=== PATIENT | female | born 1940 | race Caucasian/White ===

== ENCOUNTER → 2017-12-24 | Outpatient (CLI) | payer MEDICARE, OTHER ==
[~2017-12-24] MED LIST: ALBU90OI6 INH; ANORO ELLIPTA1 EACH INH; ASPI81CH PO; COQ1050 MG PO; Cranberry300 MG PO; ESTER-C 1,0001 EACH PO; FERR325 PO; FLUT44OIA INH; Flonase 0.05% N16 GM; KRILL OIL500 MG PO; LEVSOD100 PO; LIVALO4 MG PO; LOSHYD PO; MULVIT PO; NIAC500 PO; PARO10 PO; RANI150 PO; UBID100 PO; ZOLP5 PO
[2017-12-24 14:55] LABS: Appearance, Urine Clear (Clear); Bilirubin, Urine Neg (Neg); Blood, Urine Neg (Neg); Color, Urine Yellow (P-Yellow); Glucose Qualitative, Urine Neg (Neg); Ketones, Urine Neg (Neg); Leukocyte Esterase, Urine Neg (Neg); Nitrite, Urine Neg (Neg); Protein, Urine Neg (Neg); Specific Gravity, Urine 1.015 (1.003-1.022); Urobilinogen, Urine NORM (Normal)
== END ==
LOC: LAB SHORT 13:00 → OLS 13:00 → LAB FUT 12-24 12:50 → EDSTATUS 12-24 12:50
DX: N39.46 Mixed incontinence (principal)
CPT/HCPCS: 81003

== ENCOUNTER 2021-01-07 08:02 | Day surgery (SDC) | payer MEDICARE, OTHER ==
[~2021-01-07] VITALS: Ht 160 cm; Wt 79.1 kg
[~2021-01-07 08:02] MED LIST changes: +HYDCHL25 PO; +LOSA50 PO; +LUTEIN20 MG PO; +MYRBETRIQ25 MG PO; +PANT40 PO; +TOCO1000 PO; +TRAM50 PO
--- NOTE | 2021-01-07 19:28 | NUR ---
SUMMARY: PT IS POD0 R TKA. VSS, A/O, DOING WELL POST OP. SURGICAL SITE WNL, R LEG ICED AND ELEVATED WHILE AT REST. PAIN SEEMS TO BE MANAGED WITH 10MG OXYCODONE AND 0.5 DILAUDID FOR BREAKTHROUGH. PT UNABLE TO VOID SINCE POST OP, PT REPORTS FEELING THE URGE CURRENTLY AND NOC FOUNDER AND CHIEF EXECUTIVE OFFICER HELPING TO RESTROOM AT THIS TIME. NOC RN AWARE OF THIS. PT KRISTI PO, DENIES N/V. PLAN IS DC TOMORROW. REPORT PASSED TO NOC RN, LAZARO
[2021-01-08 04:12] LABS: BASOPHILS ABSOLUTE AUTO 0.01 K/mm3 (0.00-0.23); BASOPHILS PERCENT AUTO 0 % (0-2); EOSINOPHILS PERCENT AUTO 0 % (0-6); Hematocrit 27.5 % (33.0-51.0); Hemoglobin 8.5 g/dL (11.5-16.0); IMMATURE GRAN ABSOLUTE AUTO 0.05 K/mm3 (0.00-0.10); IMMATURE GRAN PERCENT AUTO 1 % (0-1); LYMPHOCYTES ABSOLUTE AUTO 0.71 K/mm3 (0.84-5.20); LYMPHOCYTES PERCENT AUTO 8 % (21-46); MONOCYTES ABSOLUTE AUTO 0.43 K/mm3 (0.16-1.47); MONOCYTES PERCENT AUTO 5 % (4-13); Mean Corpuscular HGB 27.2 pg (26.0-34.0); Mean Corpuscular HGB Conc 30.9 g/dL (31.5-36.5); Mean Corpuscular Volume 88 fL (80-100); Mean Platelet Volume 9.8 fL (9.1-12.4); NEUTROPHILS ABSOLUTE AUTO 7.98 K/mm3 (1.96-9.15); NEUTROPHILS PERCENT AUTO 87 % (41-73); Platelet Count 343 K/mm3 (150-400); RDW Coefficient Variation 15.4 % (11.7-14.2); RDW Standard Deviation 49.6 fL (35.1-46.3); Red Blood Cell Count 3.12 M/mm3 (3.80-5.20); White Blood Cell Count 9.18 K/mm3 (4.00-11.30)
[2021-01-08 04:31] LABS: Bun/Creatinine Ratio 15.6 (12.0-20.0); Calcium, Blood 7.9 mg/dL (8.5-10.1); Creatinine, Blood 1.09 mg/dL (0.40-1.00); Potassium, Blood 4.4 mmol/L (3.5-5.5)
--- NOTE | 2021-01-08 06:27 | NUR ---
SHIFT SUMMARY: PT POD#1 FOR RT TKA. ACEWRAP+AQUACEL DRESSING C/D/I WITH POLAR PACK IN PLACE. PAIN WELL MANAGED WITH 10MG OXY AND SCHEDULED TORADOL AND TYLENOL. PT AMBULATING TO BATHROOM WITH 1 MINIMAL ASSIST AND FWW+GB. PT NEEDING FREQ VERBAL QUES/INSTRUCTIONS ON SAFE AMBULATION. PT SOB WITH ACTIVITY AND REPORTS THIS IS BASELINE FOR HER. PT RECIEVING BREATHING TREATMENTS PER EMAR. PT CURRENTLY SITTING UP IN CHAIR WITH EXTREMITY ELEVATED. PT HAS BEEN VERY PLEASANT AND COOPERATIVE THROUGHOUT SHIFT. PLAN FOR PHYSICAL THERAPY TODAY.
[2021-01-08] MEDS ORDERED: Percocet 5-3251 EACH PO (08:51)
[2021-01-08] MEDS ORDERED: ASPI81CH PO (08:52)
--- NOTE | 2021-01-08 16:20 | NUR ---
DISCHARGE SUMMARY PT A&OX4, VSS, LEFT VIA WC WITH MINE TECHNICIAN, TO GO HOME WITH , WITH ALL PERSONAL PROPERTY INCLUDING DC PACKET, 2 AQUACEL DRESSINGS AND 1 NARC SCRIPT. DC INSTRUCTIONS PROVIDED TO PT AND , PT AND REP UNDERSTANDING THOSE INSTRUCTIONS. IV DC'D.
== END 2021-01-08 14:48 | disposition home or self-care (01) ==
LOC: ORSCMMR 08:02 → ORD 08:15 → ORSCMMR 09:45 → SURS 15:34 → ORSCMMR 01-08 14:48 → SURS 01-08 14:48
PROVIDERS: Orthopaedic Surgery
PROC: 0SRC0JA Replacement of Right Knee Joint with Synthetic Substitute, Uncemented, Open Approach (ICD-10-PCS; principal; 2021-01-07 11:00)
PROC: 8E0Y0CZ Robotic Assisted Procedure of Lower Extremity, Open Approach (ICD-10-PCS; principal; 2021-01-07 11:00)
DX: M17.11 Unilateral primary osteoarthritis, right knee (principal); I10 Essential (primary) hypertension; Z79.82 Long term (current) use of aspirin; Z79.899 Other long term (current) drug therapy; Z87.891 Personal history of nicotine dependence; E03.9 Hypothyroidism, unspecified
CPT/HCPCS: 27447; S2900; 36415; 73560-RT; 80048; 85025; 94640; 94760; 97110; 97116; 97162; A9270; C1776; C9113; J0171; J0690; J0735; J1100; J1170; J1885; J2250; J2370; J2405; J2704; J2795; J3010; J7120

== ENCOUNTER 2021-03-06 11:03 | Emergency (ER) | payer MEDICARE, OTHER ==
[~2021-03-06] VITALS: Ht 160 cm; Wt 72.6 kg
[~2021-03-06 11:03] MED LIST changes: +Percocet 5-3251 EACH PO
[2021-03-06 11:44] LABS: BASOPHILS ABSOLUTE AUTO 0.07 K/mm3 (0.00-0.23); BASOPHILS PERCENT AUTO 1 % (0-2); EOSINOPHILS ABSOLUTE AUTO 0.14 K/mm3 (0.00-0.68); EOSINOPHILS PERCENT AUTO 3 % (0-6); Hematocrit 32.6 % (33.0-51.0); Hemoglobin 9.7 g/dL (11.5-16.0); IMMATURE GRAN PERCENT AUTO 0 % (0-1); LYMPHOCYTES ABSOLUTE AUTO 1.53 K/mm3 (0.84-5.20); LYMPHOCYTES PERCENT AUTO 29 % (21-46); MONOCYTES ABSOLUTE AUTO 0.55 K/mm3 (0.16-1.47); MONOCYTES PERCENT AUTO 10 % (4-13); Mean Corpuscular HGB 25.1 pg (26.0-34.0); Mean Corpuscular HGB Conc 29.8 g/dL (31.5-36.5); Mean Corpuscular Volume 84 fL (80-100); Mean Platelet Volume 9.6 fL (9.1-12.4); NEUTROPHILS ABSOLUTE AUTO 3.05 K/mm3 (1.96-9.15); NEUTROPHILS PERCENT AUTO 57 % (41-73); Platelet Count 394 K/mm3 (150-400); RDW Standard Deviation 47.7 fL (35.1-46.3); Red Blood Cell Count 3.87 M/mm3 (3.80-5.20); White Blood Cell Count 5.34 K/mm3 (4.00-11.30)
[2021-03-06 12:19] LABS: Albumin, Blood 3.5 g/dL (3.4-5.0); Bilirubin, Total 0.3 mg/dL (0.1-1.0); Bun/Creatinine Ratio 21.8 (12.0-20.0); Calcium, Blood 8.7 mg/dL (8.5-10.1); Creatinine, Blood 0.92 mg/dL (0.40-1.00); Globulin, Blood 3.5 g/dL (2.2-4.0)
== END 2021-03-06 14:38 | disposition home or self-care (01) ==
LOC: ER 11:03
PROVIDERS: Emergency Medicine
DX: K92.2 Gastrointestinal hemorrhage, unspecified (principal); D64.9 Anemia, unspecified; E03.9 Hypothyroidism, unspecified; E78.5 Hyperlipidemia, unspecified; K21.9 Gastro-esophageal reflux disease without esophagitis; I10 Essential (primary) hypertension; Z79.82 Long term (current) use of aspirin; Z79.890 Hormone replacement therapy; Z79.899 Other long term (current) drug therapy
CPT/HCPCS: 36415; 80053; 85025; 86850; 86900; 86901; 93005; 93010; 99285-25

== ENCOUNTER → 2021-10-29 | Outpatient (CLI) | payer MEDICARE, OTHER ==
[2021-10-29 15:12] LABS: BASOPHILS ABSOLUTE AUTO 0.07 K/mm3 (0.00-0.23); BASOPHILS PERCENT AUTO 1 % (0-2); EOSINOPHILS ABSOLUTE AUTO 0.27 K/mm3 (0.00-0.68); EOSINOPHILS PERCENT AUTO 4 % (0-6); Hematocrit 34.1 % (33.0-51.0); Hemoglobin 10.3 g/dL (11.5-16.0); IMMATURE GRAN ABSOLUTE AUTO 0.02 K/mm3 (0.00-0.10); IMMATURE GRAN PERCENT AUTO 0 % (0-1); LYMPHOCYTES ABSOLUTE AUTO 1.61 K/mm3 (0.84-5.20); LYMPHOCYTES PERCENT AUTO 25 % (21-46); MONOCYTES ABSOLUTE AUTO 0.49 K/mm3 (0.16-1.47); MONOCYTES PERCENT AUTO 8 % (4-13); Mean Corpuscular HGB 26.6 pg (26.0-34.0); Mean Corpuscular HGB Conc 30.2 g/dL (31.5-36.5); Mean Corpuscular Volume 88 fL (80-100); Mean Platelet Volume 9.7 fL (9.1-12.4); NEUTROPHILS ABSOLUTE AUTO 3.94 K/mm3 (1.96-9.15); NEUTROPHILS PERCENT AUTO 62 % (41-73); Platelet Count 416 K/mm3 (150-400); RDW Coefficient Variation 16.3 % (11.7-14.2); RDW Standard Deviation 52.1 fL (35.1-46.3); Red Blood Cell Count 3.87 M/mm3 (3.80-5.20)
[2021-10-29 15:46] LABS: Albumin, Blood 3.7 g/dL (3.4-5.0); Bilirubin, Total 0.3 mg/dL (0.1-1.0); Creatinine, Blood 0.94 mg/dL (0.40-1.00); Globulin, Blood 3.8 g/dL (2.2-4.0); Potassium, Blood 4.1 mmol/L (3.5-5.5); Thyroid Stimulating Hormone 7.21 uIU/mL (0.360-4.800); Total Protein, Blood 7.5 g/dL (6.4-8.2)
[2021-10-29 18:28] LABS: Free Thyroxine 1.03 ng/dL (0.70-1.60)
== END ==
LOC: LAB SHORT 15:08
PROVIDERS: Physician Assistant Medical
DX: E03.9 Hypothyroidism, unspecified (principal); R53.83 Other fatigue
CPT/HCPCS: 80053; 84439; 84443; 84481; 85025

== ENCOUNTER → 2021-11-05 | Outpatient (CLI) | payer MEDICARE, OTHER ==
[2021-11-05 13:13] LABS: Source, Urine Clean Catch
[2021-11-05 15:46] LABS: Appearance, Urine Hazy (Clear); Bilirubin, Urine Neg (Neg); Blood, Urine 1+ (Neg); Glucose Qualitative, Urine Neg (Neg); Ketones, Urine Neg (Neg); Leukocyte Esterase, Urine 3+ (Neg); Nitrite, Urine Pos (Neg); Protein, Urine Neg (Neg); Urobilinogen, Urine NORM (Normal)
[2021-11-05 17:18] LABS: Color, Urine Pale Yellow (P-Yellow)
[2021-11-05 17:19] LABS: Bacteria Many /hpf; Squamous Epithelial Cells Few /hpf (Few); White Blood Cells, Urine 25-50 /hpf (0-5)
== END | disposition home or self-care (01) ==
LOC: LAB SHORT 12:00
PROVIDERS: Family Medicine
DX: R41.3 Other amnesia (principal); R30.0 Dysuria
CPT/HCPCS: 81001; 87077; 87086; 87186

== ENCOUNTER 2024-01-10 15:37 | Emergency (ER) | payer MEDICARE, OTHER ==
[~2024-01-10] VITALS: Ht 165.1 cm; Wt 63.5 kg
[2024-01-10] MEDS ORDERED: PROAIR RESPICL90 MCG (16:15)
[2024-01-10 16:38] LABS: BASOPHILS ABSOLUTE AUTO 0.04 K/mm3 (0.00-0.23); BASOPHILS PERCENT AUTO 1 % (0-2); EOSINOPHILS ABSOLUTE AUTO 0.05 K/mm3 (0.00-0.68); EOSINOPHILS PERCENT AUTO 1 % (0-6); Hematocrit 36.2 % (33.0-51.0); Hemoglobin 11.9 g/dL (11.5-16.0); IMMATURE GRAN PERCENT AUTO 2 % (0-1); LYMPHOCYTES ABSOLUTE AUTO 0.59 K/mm3 (0.84-5.20); LYMPHOCYTES PERCENT AUTO 10 % (21-46); MONOCYTES ABSOLUTE AUTO 0.67 K/mm3 (0.16-1.47); MONOCYTES PERCENT AUTO 11 % (4-13); Mean Corpuscular HGB Conc 32.9 g/dL (31.5-36.5); Mean Corpuscular Volume 91 fL (80-100); Mean Platelet Volume 9.4 fL (9.1-12.4); NEUTROPHILS ABSOLUTE AUTO 4.49 K/mm3 (1.96-9.15); NEUTROPHILS PERCENT AUTO 76 % (41-73); Platelet Count 401 K/mm3 (150-400); RDW Coefficient Variation 13.3 % (11.7-14.2); RDW Standard Deviation 45.1 fL (35.1-46.3); Red Blood Cell Count 3.97 M/mm3 (3.80-5.20); White Blood Cell Count 5.94 K/mm3 (4.00-11.30)
[2024-01-10 17:19] LABS: Albumin, Blood 3.4 g/dL (3.4-5.0); Albumin/Globulin Ratio 0.8 (0.8-1.8); Bilirubin, Total 0.3 mg/dL (0.1-1.0); Bun/Creatinine Ratio 8.3 (12.0-20.0); Creatinine, Blood 0.96 mg/dL (0.40-1.00); Globulin, Blood 4.2 g/dL (2.2-4.0); Potassium, Blood 3.6 mmol/L (3.5-5.5); Total Protein, Blood 7.6 g/dL (6.4-8.2)
[2024-01-10] MEDS ORDERED: RX PP Nirmatrelvir/Ritonavir (Paxlovid) 1 CO-PACKAGE (30 Tabs) UD ONE (18:15)
[2024-01-10] MEDS ORDERED: NS 1,000 ML IV SCH (18:15)
[2024-01-10 19:30] VITALS: BP 167/87
== END 2024-01-10 19:30 | disposition home or self-care (01) ==
LOC: ER 15:37
PROVIDERS: Emergency Medicine
DX: U07.1 COVID-19 (principal); E78.5 Hyperlipidemia, unspecified; I10 Essential (primary) hypertension; K21.9 Gastro-esophageal reflux disease without esophagitis; E03.9 Hypothyroidism, unspecified; Z79.899 Other long term (current) drug therapy; Z79.890 Hormone replacement therapy
CPT/HCPCS: 71045; 80053; 85025; 93005; 93010; 96360; 99284-25; J7030

== ENCOUNTER 2024-08-01 10:36 | Emergency (ER) | payer MEDICARE, OTHER ==
[~2024-08-01] VITALS: Ht 170.2 cm; Wt 72.6 kg
[~2024-08-01 10:36] MED LIST changes: +PROAIR RESPICL90 MCG
[2024-08-01 11:24] VITALS: BP 149/81
[2024-08-01] MEDS ORDERED: Ketorolac Tromethamine 30mg Vial IM ONE (11:25)
[2024-08-01] MEDS ORDERED: Lidocaine 4% 1 Patch TOP ONE (11:25)
[2024-08-01] MEDS ORDERED: Norco 5-325 Ta1 EACH PO (13:22)
== END 2024-08-01 13:36 | disposition home or self-care (01) ==
LOC: ER 10:36
DX: S22.42XA Multiple fractures of ribs, left side, initial encounter for closed fracture (principal); E78.5 Hyperlipidemia, unspecified; I10 Essential (primary) hypertension; K21.9 Gastro-esophageal reflux disease without esophagitis; E03.9 Hypothyroidism, unspecified; W18.30XA Fall on same level, unspecified, initial encounter; Z79.51 Long term (current) use of inhaled steroids; Z79.899 Other long term (current) drug therapy
CPT/HCPCS: 71046; 96372; 99283-25; A9270; J1885

== ENCOUNTER 2024-11-16 00:56 | Emergency (ER) | payer MEDICARE, OTHER ==
[~2024-11-16] VITALS: Ht 162.6 cm; Wt 83.9 kg
[~2024-11-16 00:56] MED LIST changes: +Norco 5-325 Ta1 EACH PO
[2024-11-16 03:58] LABS: BASOPHILS ABSOLUTE AUTO 0.06 K/mm3 (0.00-0.23); BASOPHILS PERCENT AUTO 1 % (0-2); EOSINOPHILS ABSOLUTE AUTO 0.17 K/mm3 (0.00-0.68); EOSINOPHILS PERCENT AUTO 3 % (0-6); Hematocrit 28.1 % (33.0-51.0); Hemoglobin 8.5 g/dL (11.5-16.0); IMMATURE GRAN ABSOLUTE AUTO 0.02 K/mm3 (0.00-0.10); IMMATURE GRAN PERCENT AUTO 0 % (0-1); LYMPHOCYTES ABSOLUTE AUTO 1.19 K/mm3 (0.84-5.20); LYMPHOCYTES PERCENT AUTO 19 % (21-46); MONOCYTES PERCENT AUTO 8 % (4-13); Mean Corpuscular HGB 24.8 pg (26.0-34.0); Mean Corpuscular HGB Conc 30.2 g/dL (31.5-36.5); Mean Corpuscular Volume 82 fL (80-100); Mean Platelet Volume 9.6 fL (9.1-12.4); NEUTROPHILS ABSOLUTE AUTO 4.42 K/mm3 (1.96-9.15); NEUTROPHILS PERCENT AUTO 70 % (41-73); Platelet Count 345 K/mm3 (150-400); RDW Coefficient Variation 16.5 % (11.7-14.2); RDW Standard Deviation 49.3 fL (35.1-46.3); Red Blood Cell Count 3.43 M/mm3 (3.80-5.20); White Blood Cell Count 6.36 K/mm3 (4.00-11.30)
[2024-11-16 04:06] LABS: Albumin, Blood 3.7 g/dL (3.4-5.0); Albumin/Globulin Ratio 0.9 (0.8-1.8); Bilirubin, Total 0.2 mg/dL (0.1-1.0); Calcium, Blood 9.4 mg/dL (8.5-10.1); Creatinine, Blood 1.58 mg/dL (0.40-1.00); Magnesium, Blood 2.2 mg/dL (1.6-2.4); Phosphorus, Blood 4.5 mg/dL (2.5-4.9); Potassium, Blood 4.4 mmol/L (3.5-5.5); Total Protein, Blood 7.7 g/dL (6.4-8.2)
[2024-11-16] MEDS ORDERED: NS 1,000 ML IV SCH (05:30)
[2024-11-16 05:55] LABS: Hematocrit 28.7 % (33.0-51.0); Hemoglobin 8.5 g/dL (11.5-16.0)
[2024-11-16 06:00] VITALS: BP 113/55
== END 2024-11-16 06:55 | disposition home or self-care (01) ==
LOC: ER 00:56
PROVIDERS: Emergency Medicine
DX: R29.6 Repeated falls (principal); D64.9 Anemia, unspecified; K21.9 Gastro-esophageal reflux disease without esophagitis; I10 Essential (primary) hypertension; E03.9 Hypothyroidism, unspecified; E78.5 Hyperlipidemia, unspecified; Z79.899 Other long term (current) drug therapy; Z79.51 Long term (current) use of inhaled steroids
CPT/HCPCS: 70450; 72125; 80053; 83735; 84100; 85014; 85018; 85025; 93005; 93010; 99284-25; J7030

== ENCOUNTER 2025-02-15 13:00 | Emergency (ER) | payer MEDICARE, OTHER ==
[~2025-02-15] VITALS: Ht 165.1 cm; Wt 68.0 kg
[2025-02-15 13:38] LABS: BASOPHILS ABSOLUTE AUTO 0.08 K/mm3 (0.00-0.23); BASOPHILS PERCENT AUTO 1 % (0-2); EOSINOPHILS ABSOLUTE AUTO 0.09 K/mm3 (0.00-0.68); EOSINOPHILS PERCENT AUTO 1 % (0-6); Hematocrit 30.0 % (33.0-51.0); Hemoglobin 8.5 g/dL (11.5-16.0); IMMATURE GRAN ABSOLUTE AUTO 0.05 K/mm3 (0.00-0.10); IMMATURE GRAN PERCENT AUTO 1 % (0-1); LYMPHOCYTES ABSOLUTE AUTO 0.98 K/mm3 (0.84-5.20); LYMPHOCYTES PERCENT AUTO 13 % (21-46); MONOCYTES ABSOLUTE AUTO 0.69 K/mm3 (0.16-1.47); MONOCYTES PERCENT AUTO 9 % (4-13); Mean Corpuscular HGB Conc 28.3 g/dL (31.5-36.5); Mean Corpuscular Volume 80 fL (80-100); NEUTROPHILS ABSOLUTE AUTO 5.81 K/mm3 (1.96-9.15); NEUTROPHILS PERCENT AUTO 76 % (41-73); NRBC ABSOLUTE 0.00 K/mm3 (0.00-0.02); NRBC Auto 0.0 /100 WBC (0.0-0.2); Platelet Count 308 K/mm3 (150-400); RDW Coefficient Variation 17.6 % (11.7-14.2); RDW Standard Deviation 50.8 fL (35.1-46.3)
[2025-02-15 13:54] LABS: Alanine Aminotransfer (ALT/SGP 19.0 U/L (12-78); Albumin, Blood 3.1 g/dL (3.4-5.0); Albumin/Globulin Ratio 0.9 (0.8-1.8); Anion Gap 9.0 mmol/L (3-11); Aspartate Aminotrans (AST/SGOT 13.0 U/L (12-37); Bilirubin, Total 0.4 mg/dL (0.1-1.0); Blood Urea Nitrogen 22.0 mg/dL (8-24); CO2, Blood 25.0 mmol/L (21-32); Calcium, Blood 8.6 mg/dL (8.5-10.1); Chloride, Blood 107.0 mmol/L (98-108); Creatinine, Blood 1.28 mg/dL (0.40-1.00); Globulin, Blood 3.4 g/dL (2.2-4.0); Glucose, Blood 124.0 mg/dL (70-99); Potassium, Blood 3.7 mmol/L (3.5-5.5); Sodium, Blood 137.0 mmol/L (136-145); Total Protein, Blood 6.5 g/dL (6.4-8.2)
[2025-02-15 15:05] VITALS: BP 123/56
== END 2025-02-15 15:08 | disposition home or self-care (01) ==
LOC: ER 13:00
PROVIDERS: Emergency Medicine
DX: R55 Syncope and collapse (principal); E86.0 Dehydration; I10 Essential (primary) hypertension; K21.9 Gastro-esophageal reflux disease without esophagitis; E78.5 Hyperlipidemia, unspecified; Z87.891 Personal history of nicotine dependence; Z79.890 Hormone replacement therapy; Z79.899 Other long term (current) drug therapy
CPT/HCPCS: 80053; 84484; 85025; 93005; 93010

== ENCOUNTER 2025-02-23 16:48 | Observation (INO) | payer MEDICARE, OTHER ==
[~2025-02-23] VITALS: Ht 170.2 cm; Wt 72.1 kg
[2025-02-23 17:27] LABS: BASOPHILS ABSOLUTE AUTO 0.06 K/mm3 (0.00-0.23); BASOPHILS PERCENT AUTO 0 % (0-2); EOSINOPHILS ABSOLUTE AUTO 0.00 K/mm3 (0.00-0.68); EOSINOPHILS PERCENT AUTO 0 % (0-6); Hematocrit 33.0 % (33.0-51.0); Hemoglobin 9.6 g/dL (11.5-16.0); IMMATURE GRAN ABSOLUTE AUTO 0.28 K/mm3 (0.00-0.10); IMMATURE GRAN PERCENT AUTO 1 % (0-1); LYMPHOCYTES ABSOLUTE AUTO 1.10 K/mm3 (0.84-5.20); LYMPHOCYTES PERCENT AUTO 3 % (21-46); MONOCYTES ABSOLUTE AUTO 2.10 K/mm3 (0.16-1.47); MONOCYTES PERCENT AUTO 7 % (4-13); Mean Corpuscular HGB Conc 29.1 g/dL (31.5-36.5); Mean Corpuscular Volume 79 fL (80-100); NEUTROPHILS ABSOLUTE AUTO 28.95 K/mm3 (1.96-9.15); NEUTROPHILS PERCENT AUTO 89 % (41-73); NRBC ABSOLUTE 0.00 K/mm3 (0.00-0.02); NRBC Auto 0.0 /100 WBC (0.0-0.2); Platelet Count 421 K/mm3 (150-400); RDW Coefficient Variation 18.6 % (11.7-14.2); RDW Standard Deviation 51.9 fL (35.1-46.3)
[2025-02-23 17:54] LABS: Alanine Aminotransfer (ALT/SGP 34.0 U/L (12-78); Albumin, Blood 3.1 g/dL (3.4-5.0); Albumin/Globulin Ratio 0.8 (0.8-1.8); Anion Gap 13.0 mmol/L (3-11); Aspartate Aminotrans (AST/SGOT 106.0 U/L (12-37); Bilirubin, Total 0.5 mg/dL (0.1-1.0); Blood Urea Nitrogen 39.0 mg/dL (8-24); CO2, Blood 26.0 mmol/L (21-32); Calcium, Blood 8.5 mg/dL (8.5-10.1); Chloride, Blood 96.0 mmol/L (98-108); Creatinine, Blood 3.69 mg/dL (0.40-1.00); Globulin, Blood 4.1 g/dL (2.2-4.0); Glucose, Blood 123.0 mg/dL (70-99); Potassium, Blood 3.5 mmol/L (3.5-5.5); Sodium, Blood 131.0 mmol/L (136-145); Thyroid Stimulating Hormone 3.61 uIU/mL (0.360-4.800); Total Protein, Blood 7.2 g/dL (6.4-8.2)
[2025-02-23] MEDS ORDERED: NS 1,000 ML IV SCH ×2 (18:05→19:40)
[2025-02-23 19:09] LABS: Source, Urine Clean Catch
[2025-02-23 19:15] LABS: Bilirubin, Urine Neg (Neg); Color, Urine Yellow (P-Yellow); Glucose Qualitative, Urine Neg (Neg); Ketones, Urine Neg (Neg); Leukocyte Esterase, Urine Neg (Neg); Protein, Urine 2+ (Neg); Specific Gravity, Urine 1.020 (1.003-1.022); Urobilinogen, Urine NORM (Normal)
[2025-02-23] MEDS ORDERED: CefTRIAXone Sodium 1,000 MG in NS 100 ML IV ONE (19:40)
[2025-02-23 20:16] LABS: Influenza A, PCR NEGATIVE (NEGATIVE); Influenza B, PCR NEGATIVE (NEGATIVE); Resp Syncytial Virus, PCR NEGATIVE (NEGATIVE); SARS-Cov-2 (COVID-19) PCR, MMC NEGATIVE (NEGATIVE)
--- NOTE | 2025-02-23 21:31 | NUR ---
TOOK REPORT FROM ED RN DEENA.
[2025-02-23 22:00] VITALS: BP 128/63
[2025-02-24] VITALS (23 sets, daily range): BP systolic 44–119; BP diastolic 21–98
[2025-02-24] MEDS ORDERED: NS 250 ML IV PRN (04:30)
[2025-02-24 04:32] LABS: Influenza A/2009-H1 Not Detected (NOT DETECT); SARS-Cov-2 (COVID-19), BioFire Not Detected (NOT DETECT)
--- NOTE | 2025-02-24 05:27 | NUR ---
SHIFT SUMMARY NOC PT A/O X 2-3. HIGHLY CONFUSED AND FORGETFUL AT TIMES. VSS. PT FREQUENTLY STATES THAT "I AM SCARED BECAUSE I DO NOT KNOW WHERE I AM AND WHY I AM HERE, AND IS MY FAMILY HERE". PT REORIENTS QUICKLY WHEN GIVEN REASSURANCES THAT THEY WILL REMAIN SAFE WHILE THEY ARE IN HOSPITAL AND FAMILY WILL BE BACK TODAY. PT ASSISTED WITH PHONE TO CALL SPOUSE TO RELIEVE ANXIETY. PT LACTIC ACID WNL 1.7. PROCALCITONIN 0.64. ABD/PELVIC CT NEGATIVE FOR INFECTION SOURCE. RESPIRATORY PCR PANEL STILL PENDING. PT HAS PUREWICK IN PLACE DUE TO SEVERE WEAKNESS. PT ON 2L/NC AND SPO2 >95%, RA IS BASELINE. PT RECEIVED 1L LR AFTER ARRIVING ON UNIT. MED RECONCILATION UNABLE TO BE COMPLETED DUE TO PT CONFUSION. PT CURRENTLY RESTING WITH BED ALARM ON, BED IN LOWEST POSITION, AND CALL LIGHT WITHIN REACH.
[2025-02-24 05:54] LABS: BASOPHILS ABSOLUTE AUTO 0.04 K/mm3 (0.00-0.23); BASOPHILS PERCENT AUTO 0 % (0-2); EOSINOPHILS ABSOLUTE AUTO 0.01 K/mm3 (0.00-0.68); EOSINOPHILS PERCENT AUTO 0 % (0-6); Hematocrit 29.1 % (33.0-51.0); Hemoglobin 8.4 g/dL (11.5-16.0); IMMATURE GRAN ABSOLUTE AUTO 0.13 K/mm3 (0.00-0.10); IMMATURE GRAN PERCENT AUTO 1 % (0-1); LYMPHOCYTES ABSOLUTE AUTO 1.05 K/mm3 (0.84-5.20); LYMPHOCYTES PERCENT AUTO 5 % (21-46); MONOCYTES ABSOLUTE AUTO 1.13 K/mm3 (0.16-1.47); MONOCYTES PERCENT AUTO 5 % (4-13); Mean Corpuscular HGB Conc 28.9 g/dL (31.5-36.5); Mean Corpuscular Volume 78 fL (80-100); NEUTROPHILS ABSOLUTE AUTO 20.47 K/mm3 (1.96-9.15); NEUTROPHILS PERCENT AUTO 90 % (41-73); NRBC ABSOLUTE 0.00 K/mm3 (0.00-0.02); NRBC Auto 0.0 /100 WBC (0.0-0.2); Platelet Count 284 K/mm3 (150-400); RDW Coefficient Variation 18.4 % (11.7-14.2); RDW Standard Deviation 51.0 fL (35.1-46.3)
[2025-02-24 06:15] LABS: Alanine Aminotransfer (ALT/SGP 48.0 U/L (12-78); Albumin, Blood 2.4 g/dL (3.4-5.0); Albumin/Globulin Ratio 0.7 (0.8-1.8); Anion Gap 10.0 mmol/L (3-11); Aspartate Aminotrans (AST/SGOT 171.0 U/L (12-37); Bilirubin, Total 0.4 mg/dL (0.1-1.0); Blood Urea Nitrogen 43.0 mg/dL (8-24); CO2, Blood 25.0 mmol/L (21-32); Calcium, Blood 7.6 mg/dL (8.5-10.1); Chloride, Blood 103.0 mmol/L (98-108); Creatinine, Blood 3.1 mg/dL (0.40-1.00); Globulin, Blood 3.4 g/dL (2.2-4.0); Glucose, Blood 106.0 mg/dL (70-99); Potassium, Blood 3.4 mmol/L (3.5-5.5); Sodium, Blood 135.0 mmol/L (136-145); Total Protein, Blood 5.8 g/dL (6.4-8.2)
[2025-02-24] MEDS ORDERED: Lactobacil 2-S.Thermo-Bifido 1 1 Cap PO SCH (09:00)
[2025-02-24] MEDS ORDERED: Enoxaparin 30 MG/0.3 ML SYR SC SCH (09:00)
[2025-02-24] MEDS ORDERED: EPINEPHrine HCL 4 MG in NS 250 ML IV SCH (10:40)
[2025-02-24 11:29] LABS: Hematocrit 25.7 % (33.0-51.0); Hemoglobin 6.9 g/dL (11.5-16.0); Mean Corpuscular HGB Conc 26.8 g/dL (31.5-36.5); NRBC ABSOLUTE 0.02 K/mm3 (0.00-0.02); NRBC Auto 0.1 /100 WBC (0.0-0.2); Platelet Count 197 K/mm3 (150-400); RDW Coefficient Variation 18.4 % (11.7-14.2); RDW Standard Deviation 55.1 fL (35.1-46.3)
[2025-02-24 11:34] LABS: Mean Corpuscular Volume 83 fL (80-100)
[2025-02-24 11:41] LABS: pH Blood Arterial 6.87 (7.35-7.45)
[2025-02-24 11:43] LABS: Anion Gap 18.0 mmol/L (3-11); Blood Urea Nitrogen 40.0 mg/dL (8-24); CO2, Blood 21.0 mmol/L (21-32); Calcium, Blood 7.1 mg/dL (8.5-10.1); Chloride, Blood 103.0 mmol/L (98-108); Creatinine, Blood 2.93 mg/dL (0.40-1.00); Glucose, Blood 206.0 mg/dL (70-99); Magnesium, Blood 1.9 mg/dL (1.6-2.4); Phosphorus, Blood 5.9 mg/dL (2.5-4.9); Potassium, Blood 2.5 mmol/L (3.5-5.5); Sodium, Blood 139.0 mmol/L (136-145)
[2025-02-24 11:44] LABS: Prothrombin Time Results 13.7 Sec (9.7-11.5)
[2025-02-24 11:55] LABS: BASOPHILS ABSOLUTE MAN 0.00 K/mm3 (0.00-0.23); BASOPHILS PERCENT MAN 0 % (0-2); EOSINOPHILS ABSOLUTE MAN 0.00 K/mm3 (0.00-0.68); EOSINOPHILS PERCENT MAN 0 % (0-6); LYMPHOCYTES ABSOLUTE MAN 3.76 K/mm3 (0.84-5.20); LYMPHOCYTES PERCENT MAN 16 % (21-46); MONOCYTES ABSOLUTE MAN 0.00 K/mm3 (0.16-1.47); MONOCYTES PERCENT MAN 0 % (4-13); NEUTROPHILS ABSOLUTE MAN 19.74 K/mm3 (1.96-9.15); SEG NEUTROPHILS PERCENT MAN 84 % (41-73)
[2025-02-24] MEDS ORDERED: NS 1,000 ML IV SCH (11:55)
[2025-02-24] MEDS ORDERED: Sodium Bicarb 8.4% Inj 150 MEQ in Dextrose 5% 1,000 ML IV SCH (12:00)
[2025-02-24] MEDS ORDERED: NS 250 ML IV ONE (12:05)
[2025-02-24] MEDS ORDERED: Heparin Sodium 1000 Units/ML 10ML MDV ONE (12:05)
--- NOTE | 2025-02-24 12:27 | NUR ---
1020 RAPID RESPONSE CALLED. PATIENT DESATING, MINIMALLY RESPONSIVE TO PHYSICAL STIMULI, SOILED BED, DIAPHORETIC, PALE. IMMEDIATELY PRIOR TO THIS PATIENT WAS SITTING AT EDGE OF BED WITH TUFT MACHINE OPERATOR AFTER HAVING BM ON BEDPAN, REPORTING FEELING SHORT OF BREATH, FACE APPEARING BLUE/PURPLE, INCREASED RESPIRATIONS. LAYED PATIENT DOWN, INCREASED OXYGEN NC TO 5 LITERS FROM 2. ASKED TUFT MACHINE OPERATOR FOR VITALS AT THIS TIME, INFORMED CHARGE I NEEDED ASSISTANCE. RESPIRATORY AND CHARGE IN ROOM, CHANGED TO OXY FACE MASK WITH NO CHANGE TO OXYGENATION. APICAL PULSE ERRATIC, GUPPY BREATHING. RAPID CALLED. RAPID TEAM ARRIVED AND TOOK OVER CARE, DR JARVIS IN ROOM. PATIENT EVENTUALLY TRANSFERRED TO ICU.
--- NOTE | 2025-02-24 13:39 | NUR ---
PT ARRIVED FROM RAPID RESPONE ON THE FLOOR. PATEINT CAME INTUBATED AND MOVED TO ICU BED. PT BECAME BRADICARDIC AND WENT PEA WHEN CODE WAS STARTED. DR JAMES AT BEDSIDE. SEE CODE BLUE SHEET. A CYCLE OF RENEA, PEA, CPR, TO ROSC STARTED ON ARRIVAL TO FLOOR. DR ZUNIGA AT BEDSIDE ENTIRE TIME. REFER TO MD NOTE WELL.
[2025-02-24] MEDS ORDERED: DOPamine 400 MG/Dextrose 250 ML Bag IV ONE (14:40)
[2025-02-24] MEDS ORDERED: Sodium Bicarb 8.4% 1 MEQ/ML 50 ML Vial IV ONE (14:40)
--- NOTE | 2025-02-24 15:11 | NUR ---
[facility]/Transfer to ICU: microbiology technologist called at approx 1020hr. This RN and Lanette Soriano (RN) reported to patient's room. Upon arrival patient unresponsive, guppy breathing, pale. Primary RN also reported systolic BP in the 60's when [facility] called. This RN then requested intubation to Dr. Ferro, who agreed with plan. Dr. Arreola arrived to room at that time, multiple staff members preparing for intubation, IV fluid bolus started. Zoll pads applied, HR sinus in the 60's-70's. 1029: Spo2 100% per BMV, provided by RT. 1030: Intubated with 7.5 ETT, positive color change on capnography, bilateral breath sounds. 1030: CBG of 138 1034: HR decreased to sinus in the 40's, unable to obtain BP, 1 amp epi given per Dr. Arreola., HR then increased to 60's. 1037: Dopamine gtt started at 4mcg/kg/min. 18g IV placed to rt AC. 1038: HR to SVT 170-200's. Dopamine gtt placed on stand-by. 1039: HR decreased to 130's, patient transferred to ICU. See code blue sheet, patient went to PEA upon arrival to ICU. CPR started, Dr. Arreola at bedside throughout multiple codes.
[2025-02-24] MEDS ORDERED: CefTRIAXone Sodium 1,000 MG in NS 100 ML IV SCH (18:00)
== END 2025-02-24 16:35 ==
LOC: ER 16:48 → MEDS 16:49 → ICUE 21:36 → MEDS 21:41 → ICUE 02-24 10:37
PROVIDERS: Emergency Medicine; Internal Medicine Critical Care Medicine; ADMIT Family Medicine
DX: I21.19 ST elevation (STEMI) myocardial infarction involving other coronary artery of inferior wall (principal); R57.0 Cardiogenic shock; D62 Acute posthemorrhagic anemia; K92.1 Melena; E87.4 Mixed disorder of acid-base balance; J96.01 Acute respiratory failure with hypoxia; I48.91 Unspecified atrial fibrillation; R00.1 Bradycardia, unspecified; I12.9 Hypertensive chronic kidney disease with stage 1 through stage 4 chronic kidney disease, or unspecified chronic kidney disease; N18.32 Chronic kidney disease, stage 3b; N17.9 Acute kidney failure, unspecified; I46.9 Cardiac arrest, cause unspecified; J69.0 Pneumonitis due to inhalation of food and vomit; E87.6 Hypokalemia; G92.8 Other toxic encephalopathy; K44.9 Diaphragmatic hernia without obstruction or gangrene; K21.9 Gastro-esophageal reflux disease without esophagitis; E78.5 Hyperlipidemia, unspecified; E03.9 Hypothyroidism, unspecified; A41.9 Sepsis, unspecified organism; D72.829 Elevated white blood cell count, unspecified; Z66 Do not resuscitate; Z87.891 Personal history of nicotine dependence; Z79.890 Hormone replacement therapy; Z79.899 Other long term (current) drug therapy
CPT/HCPCS: 0202U; 36415; 36600; 51701; 70450; 71045; 71250; 74176; 80048; 80053; 81001; 82803; 82947; 83605; 83735; 84100; 84145; 84439; 84443; 85025; 85610; 85730; 86850; 86900; 86901; 86923; 87637; 93005; 93010; 93306; 94002; 96361; 96365; 96367; 96372; 96375; 99285-25; A9270; G0378; J0165; J0696; J1265; J1644; J1650; J3480; J7030; J7050; J7070; J7120